=== PATIENT | male | born 1955 | race Caucasian/White ===

== ENCOUNTER 2017-10-22 06:53 | Day surgery (SDC) | payer OTHER, SELFPAY ==
--- NOTE | 2017-10-22 | PATH_ITS ---
[facility] Accession Number: [id number] . 01 Material submitted: . PART A: GASTRIC POLYP PART B: GE JUNCTION . 02 Diagnosis: A. Stomach, Polyp, Biopsy: Fundic gland polyp. No evidence of Helicobacter on H/E stain. Negative for intestinal metaplasia. Negative for dysplasia and malignancy. . B. Gastroesophageal Junction, Biopsy: Squamous and columnar mucosa with no significant diagnostic abnormality. Negative for intestinal metaplasia. Intraepithelial eosinophils are not increased. Negative for dysplasia and malignancy. [facility]/10/23/2017 . 02 Electronically signed: . Renae Saucedo MD, Pathologist NPI- [id number] . 01 Gross description: . (A) Received in formalin, labeled gastric polyp, are multiple fragments of moyer tissue (1.0 x 0.5 x 0.2 cm in aggregate). Filtered and entirely submitted in cassette A1. (B) Received in formalin, labeled GE junction, are multiple fragments of sandoval-white semi-translucent tissue (0.9 x 0.5 x less than 0.1 cm in aggregate). Filtered and entirely submitted in cassette B1. ([id number]) /[facility] . 02 Pathologist provided ICD-10: R10.9 . 02 CPT . 660335, [id number] Performed at: 01 [facility] [address], [place], [place] [id number] MD Jassi Martin MD Phone: [phone] Performed at: 02 [facility] [place] [address] [place], [place] [id number] MD David Velasco MD Phone: [phone]
[2017-10-22 07:08] VITALS: BP 97/64; PULSE 70; RESP 18; TEMP 36.2; O2SAT 100; BMI 23.5
--- NOTE | 2017-10-22 08:01 | PM.PREOP ---
Pre-operative Note Interval Note Pre-op Check: Yes History & Physical Reviewed by Physician and Yes Exam Performed Changes: Yes H&P completed within 30 days and has changed as indicated here:: patient has severe anxiety thus anesthesiologist will be involved with his care
[2017-10-22] MEDS: SODIUM CHLORIDE 0.9% 1,000 ML 200 ML IV (08:02)
[2017-10-22] MEDS: TETRACAINE/BENZOCAINE/BUTAMBEN (CETACAINE) BOTTLE 1 SPRAY TOP (08:18)
--- NOTE | 2017-10-22 08:30 | PM.OP.ENDO ---
Operative Date/Time/Diagnoses Date of procedure: 10/22/17 Time of procedure: 08:30 Pre-op diagnosis: Epigastric discomfort, persistent nausea especially after eating Post-op diagnosis: same (Narrowed pylorus. 2 cm hiatal hernia. Polypoid gastric lesions suggestive of benign gastric fundic polyps) Procedure & Clinicians Study performed: EGD with cold biopsy Same procedure as scheduled: Yes Indications: Postprandial nausea epigastric pain cause unclear. Surgeon: Manny Darby Procedure Notes SCOAP/Timeout: Performed Procedure in detail: The patient had topical anesthetic applied to oropharynx. She was placed in left lateral decubitus position and underwent Iv MAC anesthesia due to his severe anxiety. A bite block was inserted and the scope was advanced through it into the esophagus. Cord structures were normal in appearance. The esophagus was unremarkable. GE junction was noted at 38 cm from the incisors. There was a small 2 cm hiatal hernia noted. The stomach insufflated well. There were no lesions seen in the body, antrum or at the incisura save for scattered polypoid lesions highly suggestive of gastric fundic polyps. The pyloric channel was narrowed but patent. The duodenal bulb was remarkable for small amount of petechial like lesions. There was no active ulceration or duodenitis. The remainder of the duodenum was normal to the 3th part. The papilla was well seen and was normal in appearance. Bile was noted to be coming from the orifice. The scope was brought back into the stomach and retroflexed. The proximal stomach[was normal except for the presence of a hiatal hernia seen from below. Random biopsies were taken of the gastric polyps.]. The scope was straightened and brought out through the esophagus again. Random biopsies were taken at the GE junction though there was no evidence of Cuellar's metaplasia. No lesions were seen. The scope was removed and the patient tolerated the procedure well. Scope withdrawal time: Not applicable Sedation minutes: 0 Findings: hiatal hernia (Small 2 cm), polyp (Gastric suggestive of fundic polyps. Biopsies taken.) and other findings (Narrow pyloric channel) Recommendations: Stop medication(s) (Sucralfate) Follow up: as needed Disposition: PACU
[2017-10-22 08:31] VITALS: BP 99/69; PULSE 81; RESP 12; TEMP 36; O2SAT 97
[2017-10-22 08:36] VITALS: BP 100/69; PULSE 76; RESP 9; O2SAT 95
[2017-10-22 08:41] VITALS: BP 106/77; PULSE 92; RESP 22; O2SAT 94
[2017-10-22 08:47] VITALS: BP 107/86; PULSE 89; RESP 12; TEMP 35.8; O2SAT 99
--- NOTE | 2017-10-22 08:48 | SUR.PHASEI ---
Denied pain, occasional moist cough
[2017-10-22 09:11] VITALS: BP 110/78; PULSE 80; RESP 16; TEMP 36.3; O2SAT 99
--- NOTE | 2017-10-22 09:14 | SUR.PHASEII ---
Pt. has occasional spontanious cough without drinking, able to cough and clear throat easily. This author instructed the pt. and the spouse, when pt. is eating/drinking needs to sit bolt upright and do not turn head, talk or anything while swallowing. Let the pt./spouse know this should be only throughout today. Both spouse and pt. acknowledged understanding.
== END 2017-10-22 09:06 | disposition home or self-care (01) ==
PROVIDERS: Family Provider Family Medicine; PCP Family Medicine; Visit Provider Specialist
PROC: 0DJ08ZZ Inspection of Upper Intestinal Tract, Via Natural or Artificial Opening Endoscopic (ICD-10-PCS; CPT 43235; principal; 2017-10-22 07:45)
DX: K44.9 Diaphragmatic hernia without obstruction or gangrene (principal); R63.4 Abnormal weight loss; R11.0 Nausea; F41.9 Anxiety disorder, unspecified; K31.7 Polyp of stomach and duodenum
CPT/HCPCS: 43239; J2250; J2704; J3010

== ENCOUNTER → 2017-11-02 10:02 | Outpatient (CLI) | payer OTHER, SELFPAY ==
--- NOTE | 2017-11-02 10:02 | DI.US.S_ITS ---
PROCEDURE: US ABDOMEN COMPLETE INDICATIONS: POST PRANDIAL NAUSEA, PAIN TECHNIQUE: Real-time scanning was performed of the abdominal and retroperitoneal organs, with image documentation. COMPARISON: None. FINDINGS: Liver: Liver is normal in size and homogeneous in echotexture. Gallbladder: No gallstones identified. Normal gallbladder wall. No pericholecystic fluid. Negative sonographic Luther sign. Biliary ducts: Intrahepatic bile ducts are non-dilated. Extrahepatic bile duct caliber measures 4.6 mm. Normal is 6-7 mm or less in diameter, or 10 mm or less post-cholecystectomy. Pancreas: Visualized portions of the pancreas are sonographically normal. Spleen: Spleen is normal in size and homogeneous in echotexture. Kidneys: Kidneys are normal in size and echotexture. Right kidney measures 11 cm long; left kidney measures 11.1 cm long. No hydronephrosis or nephrolithiasis. No solid masses. Aorta: Visualized aorta is normal in caliber at less than 3 cm. Iliacs: Proximal common iliac arteries are normal in caliber at less than 2.5 cm. IVC: Intrahepatic inferior vena cava is patent. Miscellaneous: No free abdominal fluid. IMPRESSION: No source for postprandial pain and nausea identified sonographically. Dictated by: Eligio NAVARRO Interpreted: Delonte Hudson MD on 11/02/2017 at 10:43 Approved by: Delonte Hudson M.D. on 11/02/2017 at 13:21
== END ==
PROVIDERS: Family Provider Family Medicine; PCP Family Medicine; Visit Provider Specialist
DX: R10.13 Epigastric pain (principal); R11.0 Nausea; R63.4 Abnormal weight loss
CPT/HCPCS: 76700

== ENCOUNTER → 2017-11-26 10:50 | Outpatient (CLI) | payer OTHER, SELFPAY ==
--- NOTE | 2017-11-26 11:44 | DI.CT.S_ITS ---
PROCEDURE: CT ABDOMEN W CON INDICATIONS: epigastric discomfort and postprandial nausea TECHNIQUE: After the administration of oral and intravenous contrast, 5 mm thick sections acquired from the diaphragms to the iliac crests. 5 mm thick coronal and sagittal reformats were acquired. For radiation dose reduction, the following was used: automated exposure control, adjustment of mA and/or kV according to patient size. COMPARISON: None. FINDINGS: Image quality: Excellent. Lung bases: Lung bases are clear. Heart size is normal. Solid organs: Liver is normal in size and enhancement. Small, round, subcapsular fat density lesion is noted in the posterior-inferior margin of the right lobe liver ultimately series 2, image 19; series 4, image 47) may represent a pseudolipoma of the hepatic capsule. Mild, diffuse fatty infiltration of the liver. Gallbladder is within normal limits. Biliary system is non dilated. Pancreas enhances normally. Spleen is normal in size and enhancement. No adrenal nodules. Kidneys are normal in size, without hydronephrosis. Peritoneum and bowel: Mild, circumferential wall thickening involving the distal esophagus and wall thickening involving the cardia and fundus of the proximal stomach which could be due to under distention versus neoplastic process.. Contrast enhanced bowel loops appear normal in caliber. Few diverticuli noted in the visualized colon without evidence of diverticulitis. No free fluid or air. Nodes and vessels: No retroperitoneal or mesenteric adenopathy by size criteria. Aorta and inferior vena cava are normal in size. Bones: No suspicious bony lesions. No vertebral body compression fractures. Spine degenerative disc disease and facet arthropathy. Miscellaneous: No ventral hernias. IMPRESSION: 1. Mild wall thickening involving the visualized distal esophagus as well as the cardia and fundus of the proximal stomach which could be due to underdistention versus infiltrating process including both inflammatory and neoplastic etiologies. Recommend either endoscopy or air-contrast upper GI series for further evaluation. 2. Mild hepatic steatosis. 3. Colonic diverticulosis without evidence of diverticulitis. 4. No free fluid or free air. 5. No dilated loops of bowel. Dictated by: Linda Vargas MD, PhD on 11/26/2017 at 16:40 Approved by: Linda Vargas MD, PhD on 11/26/2017 at 16:50
[2017-11-26 11:52] LABS: BUN Creatinine Ratio 18.8 (6-22); Blood Urea Nitrogen 15 mg/dL (9-20); Estimated Glomerular Filt Rate > 60.0 mL/min (>60)
== END ==
PROVIDERS: Family Provider Family Medicine; PCP Family Medicine; Visit Provider Specialist
DX: R10.13 Epigastric pain (principal); R11.0 Nausea; K76.0 Fatty (change of) liver, not elsewhere classified; K57.90 Diverticulosis of intestine, part unspecified, without perforation or abscess without bleeding
CPT/HCPCS: 36415; 74160; 82565; 84520; Q9967

== ENCOUNTER → 2018-03-10 15:13 | Outpatient (CLI) | payer OTHER, SELFPAY ==
[2018-03-10 15:42] LABS: BUN Creatinine Ratio 17.8 (6-22); Blood Urea Nitrogen 16 mg/dL (9-20); Estimated Glomerular Filt Rate > 60.0 mL/min (>60)
== END ==
PROVIDERS: PCP Family Medicine; Visit Provider Specialist
DX: R10.13 Epigastric pain (principal)
CPT/HCPCS: 36415; 82565; 84520

== ENCOUNTER → 2018-03-11 16:05 | Outpatient (CLI) | payer OTHER, SELFPAY ==
--- NOTE | 2018-03-11 16:06 | DI.MRI.S_ITS ---
PROCEDURE: MR ABDOMEN WO/W CON INDICATIONS: Epigastric pain.Unexplained 40 lb weight loss.Sister Panc CA TECHNIQUE: Coronal HASTE, axial 2D FLASH in- and toe-sy-kugsw; axial breath-hold T2 FSE. Dynamic axial VIBE during the administration of contrast; post-contrast coronal VIBE or 2D FLASH with fat saturation from the hepatic dome to the iliac crests. Optional diffusion weighted imaging and ADC may be performed. COMPARISON: [facility], US, US ABDOMEN COMPLETE, 11/02/2017, 10:07. [facility], CT, CT ABDOMEN W CON, 11/26/2017, 11:53. FINDINGS: Image quality: Excellent. Lung bases: No basal pleural effusions. Heart size is normal. Solid organs: Liver is normal in size and enhancement. Gallbladder appears normal. Biliary system is non dilated. Pancreas is normal in morphology and shows no evidence of mass or pancreatic ductal distention. Spleen is normal in size and enhancement. No adrenal nodules. Both kidneys demonstrate normal size and enhancement, without hydronephrosis. Nodes and vessels: No retroperitoneal or mesenteric adenopathy by size criteria. Aorta and inferior vena cava are normal in size. Bowel and peritoneum: Unenhanced bowel loops are normal in caliber. No free fluid. Bones and soft tissues: No ventral hernias. Bone marrow is normal in overall signal. IMPRESSION: Etiology is current pain and unexplained weight loss is not found. The pancreas appears free of mass or pancreatic ductal distention. The bile ducts are not distended. Throughout the visualized abdomen and upper pelvis no lesion is seen. Dictated by: Delonte Hudson M.D. on 03/12/2018 at 9:00 Approved by: Delonte Hudson M.D. on 03/12/2018 at 9:07
== END ==
PROVIDERS: PCP Family Medicine; Visit Provider Specialist
DX: R10.13 Epigastric pain (principal); R63.4 Abnormal weight loss
CPT/HCPCS: 74183; A9579

== ENCOUNTER → 2018-03-18 12:35 | Outpatient (CLI) | payer OTHER, SELFPAY | PROVIDERS: PCP Family Medicine; Visit Provider Family Medicine | DX: M79.646 Pain in unspecified finger(s) (principal) | CPT/HCPCS: 95885; 95886; 95911 ==

== ENCOUNTER → 2018-04-21 15:59 | Outpatient (CLI) | payer SELFPAY ==
--- NOTE | 2018-04-21 | DI.RAD.S_ITS ---
PROCEDURE: XR KNEE LT 3V INDICATIONS: BILATERAL KNEE PAIN TECHNIQUE: 3 views of the knee were acquired. COMPARISON: [facility], CR, XR KNEE RT 3V, 04/21/2018, 16:19. [facility], , KNEE 3V LEFT, 01/11/2016, 11:58. FINDINGS: Bones: No fractures or dislocations. No suspicious bony lesions. There is a slight degree of medial compartment joint space narrowing. No effusion or loose bodies seen. Soft tissues: No joint effusion. No suspicious soft tissue calcifications. IMPRESSION: Degenerative changes at the left knee are very mild at the medial compartment, and no trauma is seen. Dictated by: Delonte Hudson M.D. on 04/21/2018 at 16:47 Approved by: Delonte Hudson M.D. on 04/21/2018 at 16:48
--- NOTE | 2018-04-21 | DI.RAD.S_ITS ---
PROCEDURE: XR KNEE RT 3V INDICATIONS: BILATERAL KNEE PAIN TECHNIQUE: 3 views of the knee were acquired. COMPARISON: [facility], , KNEE 3V LEFT, 01/11/2016, 11:58. FINDINGS: Bones: No fractures or dislocations. No suspicious bony lesions. There is a slight degree of narrowing of the medial compartment and the lateral facet of the patellofemoral joint no effusion or loose body is seen. Soft tissues: No joint effusion. No suspicious soft tissue calcifications. IMPRESSION: Minimal degenerative osteoarthritis at the medial compartment and the lateral facet. The appearance is equivalent to that on the frontal view of the left knee but facet degeneration at the left knee is not present. Dictated by: Delonte Hudson M.D. on 04/21/2018 at 16:44 Approved by: Delonte Hudson M.D. on 04/21/2018 at 16:47
== END ==
PROVIDERS: PCP Family Medicine; Visit Provider Family Medicine
DX: M25.562 Pain in left knee (principal); M25.561 Pain in right knee
CPT/HCPCS: 73562

== ENCOUNTER 2020-04-07 23:19 | Emergency (ER) | payer OTHER, SELFPAY ==
[2020-04-07 23:27] VITALS: BP 149/83; PULSE 74; RESP 17; TEMP 36.8; O2SAT 100; BMI 25.1
--- NOTE | 2020-04-07 23:27 | DI.RAD.S_ITS ---
PROCEDURE: XR CHEST 1V INDICATIONS: chest pain TECHNIQUE: One view of the chest was acquired. COMPARISON: Located [facility], , CHEST 2 VIEW, 12/15/2016, 11:42. FINDINGS: Overlying EKG wires. Surgical changes and devices: None. Lungs and pleura: Lungs are clear. No pleural effusions or pneumothorax. Mediastinum: Mediastinal contours appear normal. Heart size is normal. Bones and chest wall: Remote posttraumatic changes of the right distal clavicle and mild degenerative changes of the spine. No acute osseous abnormality. No suspicious bony lesions. Overlying soft tissues appear unremarkable. IMPRESSION: No evidence of an acute cardiopulmonary abnormality. Agree with preliminary report. Dictated by: Conrad Adler D.O. on 04/08/2020 at 6:31 Approved by: Conrad Adler D.O. on 04/08/2020 at 6:32
[2020-04-07 23:36] LABS: Add Manual Diff / Slide Review NO; Basophils Absolute Auto 0 /uL (0-100); Basophils Percent Auto 0.7 % (0-2); Eosinophils Absolute Auto 200 /uL (0-450); Eosinophils Percent Auto 2.9 % (2-4); Hematocrit 40.9 % (41-53); Hemoglobin 13.8 g/dL (13.5-17.5); Lymphocytes Absolute Auto 2900 /uL (1100-4500); Lymphocytes Percent Auto 43.3 % (25-40); Mean Corpuscular HGB Conc 33.6 % (30-36); Mean Corpuscular Hemoglobin 29.9 PG (26-34); Mean Corpuscular Volume 88.8 fL (80-100); Monocytes Absolute Auto 800 /uL (0-900); Monocytes Percent Auto 11.8 % (3-14); Neutrophils Absolute Auto 2800 /uL (1500-7000); Neutrophils Percent Auto 41.3 % (50-75); Platelet Count 213 X10^3/uL (150-400); Red Blood Cell Count 4.61 X10^6/uL (4.5-5.9); Red Cell Distribution Width 13.3 % (11.6-14.8); White Blood Cell Count 6.7 X10^3/uL (4.5-11.0)
[2020-04-07 23:40] LABS: INR 1.1 (0.9-1.3); Prothrombin Time 13.2 SECONDS (10.1-12.7)
[2020-04-07 23:43] LABS: PTT Partial Thromboplastin Tim 28 SECONDS (26.4-36.2)
[2020-04-07 23:45] LABS: Alanine Aminotransferase 40 IU/L (<50); Albumin 4.3 g/dL (3.5-5.0); Albumin Globulin Ratio 1.5 (1.0-2.8); Alkaline Phosphatase 83 U/L (38-126); Aspartate Aminotransferase 32 IU/L (17-59); BUN Creatinine Ratio 21.2 (6-22); Bilirubin Total 0.3 mg/dL (0.2-1.3); Blood Urea Nitrogen 18 mg/dL (9-20); Calcium 9.2 mg/dL (8.4-10.2); Carbon Dioxide 30 mmol/L (22-32); Chloride 104 mmol/L (98-107); Creatine Kinase 103 U/L (55-170); Estimated Glomerular Filt Rate > 60.0 mL/min (>60); Globulin 2.9 g/dL (1.7-4.1); Glucose 81 mg/dL (80-110); HEMOLYSIS < 15 (0-50); Lipase 69 U/L (23-300); Potassium 3.8 mmol/L (3.4-5.1); Sodium 139 mmol/L (137-145); Total Protein 7.2 g/dL (6.3-8.2)
[2020-04-07 23:56] LABS: Troponin I < 0.012 ng/mL (0.01-0.034)
[2020-04-08] LABS: CKMB % Relative Index 0.7 % (1.5-5.0); Creatine Kinase MB 0.72 ng/mL (<2.37)
[2020-04-08 00:06] LABS: D Dimer < 200 ng/mL (<230)
--- NOTE | 2020-04-08 00:17 | ED.CHESTPAIN ---
HPI - Chest Pain General Chief Complaint: Chest Pain Stated Complaint: chest pain, difficulty breathing Time Seen by Provider: 04/07/20 23:30 Source: patient Mode of arrival: Ambulatory Limitations: no limitations History of Present Illness HPI narrative: 64-year-old gentleman with history of reflux, and hyperlipidemia on Lipitor, presents after 15 minutes of severe mid chest pain. He describes the pain is starting while he was sitting and watching television. Started in the left chest radiated across the midportion central chest was sharp, stabbing associated with crescendo pain than increasing dyspnea. He notes no diaphoresis and no nausea. Pain eventually subsided completely and he is pain free upon arrival in the emergency department. He states he took a full aspirin prior to arrival in the emergency department. He has never had similar symptoms in this does not feel like any of his reflux pain. Family history is significant for a father who began having cardiac issues in his mid 40s and ended up with bypass surgery x2. Related Data Home Medications Medication Instructions Recorded Confirmed omeprazole magnesium [Prilosec OTC] 20 mg PO BID #0 01/11/16 03/02/18 Allergies Allergy/AdvReac Type Severity Reaction Status Date / Time No Known Allergies Allergy Uncoded 03/02/18 15:21 Review of Systems Review of Systems Narrative: Pertinent positive and negative findings as per HPI Remainder of review of systems is otherwise unremarkable for Constitutional: Fevers, chills, weakness ENT: No sore throat, neck pain, ear pain CV: Chest pain, palpitations, dyspnea on exertion Respiratory: Cough, wheeze, dyspnea GI: Nausea, vomiting, diarrhea, : Dysuria, hematuria, flank pain MS: Muscle weakness, numbness, joint swelling or warmth Skin: Rashes, nonhealing lesions Neuro: Syncope, dizziness, tingling Patient History Medical History (Updated 04/08/20 @ 02:20 by Tiffani Gregory MD) History of chronic arthritis Surgical History History of appendectomy History of tonsillectomy S/P operative procedure on shoulder Family History Father Hypertension Heart disease Sister Cancer Social History marital status: household members: spouse and family occupational status: employed Smoking Status: Never smoker alcohol intake: current substance use type: does not use Smoking Status: Never smoker alcohol intake frequency: holidays/special occasions only Substance Use Type: does not use Exam Narrative Exam Narrative: General: Healthy appearing, in no acute distress. Able to give a complete and coherent history. Well-nourished well-developed HEENT: Moist mucous membranes, normal sclera with reactive pupils, Neck: No JVD, supple Respiratory: Lungs are clear to auscultation, no wheezing no rales no rhonchi. Full and symmetrical air movement Cardiac: Regular rate and rhythm no murmurs no bruits Abdomen: Soft, nontender, good bowel tones, no flank pain Skin: Warm and dry, no rashes Neurologic: Grossly neurologically intact with no obvious asymmetries or abnormalities Extremities: No trauma, well perfused Psych: Cooperative, appropriate insight and affect Initial Vital Signs Initial Vital Signs: Vital Signs Temperature 98.2 F 04/07/20 23:27 Pulse Rate 74 04/07/20 23:27 Respiratory Rate 17 04/07/20 23:27 Blood Pressure 149/83 H 04/07/20 23:27 Pulse Oximetry 100 04/07/20 23:27 Course Orders Ordered: ED Orders 04/07/20 23:25 Complete Blood Count AUTO DIFF Stat Comprehensive Metabolic Panel Stat D Dimer Stat Lipase Stat Partial Thromboplastin Time Stat Prothrombin Time INR Stat Troponin & CK Cardiac Panel Stat 04/07/20 23:27 XR chest 1V Stat EKG-12 Lead Stat 04/08/20 01:21 Trop I [Troponin I] Stat Vital Signs Vital signs: Vital Signs - 8 hr 04/07/20 23:27 Temperature 98.2 F Pulse Rate 74 Respiratory Rate 17 Blood Pressure 149/83 H Pulse Oximetry 100 MDM - Chest Pain Medical Records Data Attestation: I reviewed the patient's medical records. Lab Data Attestation: I reviewed the patient's lab results. Lab results narrative: Initial labs are reassuring, troponin is unremarkable. Will repeat at 2:00 a.m. Result diagrams: 04/07/20 23:25 04/07/20 23:25 Labs: Lab Results 04/07/20 04/07/20 04/07/20 Range/Units 23:25 23:25 23:25 WBC 6.7 (4.5-11.0) X10^3/uL RBC 4.61 (4.5-5.9) X10^6/uL Hgb 13.8 (13.5-17.5) g/dL Hct 40.9 L (41-53) % MCV 88.8 (80-100) fL MCH 29.9 (26-34) PG MCHC 33.6 (30-36) % RDW 13.3 (11.6-14.8) % Plt Count 213 (150-400) X10^3/uL Neut % (Auto) 41.3 L (50-75) % Lymph % (Auto) 43.3 H (25-40) % [place] % (Auto) 11.8 (3-14) % Eos % (Auto) 2.9 (2-4) % Baso % (Auto) 0.7 (0-2) % Neut # (Auto) 2800 (9275-2307) /uL Lymph # (Auto) 2900 (2885-9121) /uL [place] # (Auto) 800 (0-900) /uL Eos # (Auto) 200 (0-450) /uL Baso # (Auto) 0 (0-100) /uL PT 13.2 H (10.1-12.7) SECONDS INR 1.1 (0.9-1.3) APTT 28 (26.4-36.2) SECONDS D-Dimer (<230) ng/mL Sodium 139 (137-145) mmol/L Potassium 3.8 (3.4-5.1) mmol/L Chloride 104 (98-107) mmol/L Carbon Dioxide 30 (22-32) mmol/L BUN 18 (9-20) mg/dL Creatinine 0.85 (0.66-1.25) mg/dL Estimated GFR > 60.0 (>60) mL/min BUN/Creatinine Ratio 21.2 (6-22) Glucose 81 (80-110) mg/dL Calcium 9.2 (8.4-10.2) mg/dL Total Bilirubin 0.3 (0.2-1.3) mg/dL AST 32 (17-59) IU/L ALT 40 (<50) IU/L Alkaline Phosphatase 83 (38-126) U/L Total Creatine Kinase 103 (55-170) U/L CK-MB (CK-2) 0.72 (<2.37) ng/mL CK-MB (CK-2) Rel Index 0.7 L (1.5-5.0) % Troponin I < 0.012 (0.01-0.034) ng/mL Total Protein 7.2 (6.3-8.2) g/dL Albumin 4.3 (3.5-5.0) g/dL Globulin 2.9 (1.7-4.1) g/dL Albumin/Globulin Ratio 1.5 (1.0-2.8) Lipase 69 (23-300) U/L 04/07/20 04/08/20 Range/Units 23:25 01:21 WBC (4.5-11.0) X10^3/uL RBC (4.5-5.9) X10^6/uL Hgb (13.5-17.5) g/dL Hct (41-53) % MCV (80-100) fL MCH (26-34) PG MCHC (30-36) % RDW (11.6-14.8) % Plt Count (150-400) X10^3/uL Neut % (Auto) (50-75) % Lymph % (Auto) (25-40) % [place] % (Auto) (3-14) % Eos % (Auto) (2-4) % Baso % (Auto) (0-2) % Neut # (Auto) (5569-6643) /uL Lymph # (Auto) (2785-9564) /uL [place] # (Auto) (0-900) /uL Eos # (Auto) (0-450) /uL Baso # (Auto) (0-100) /uL PT (10.1-12.7) SECONDS INR (0.9-1.3) APTT (26.4-36.2) SECONDS D-Dimer < 200 (<230) ng/mL Sodium (137-145) mmol/L Potassium (3.4-5.1) mmol/L Chloride (98-107) mmol/L Carbon Dioxide (22-32) mmol/L BUN (9-20) mg/dL Creatinine (0.66-1.25) mg/dL Estimated GFR (>60) mL/min BUN/Creatinine Ratio (6-22) Glucose (80-110) mg/dL Calcium (8.4-10.2) mg/dL Total Bilirubin (0.2-1.3) mg/dL AST (17-59) IU/L ALT (<50) IU/L Alkaline Phosphatase (38-126) U/L Total Creatine Kinase (55-170) U/L CK-MB (CK-2) (<2.37) ng/mL CK-MB (CK-2) Rel Index (1.5-5.0) % Troponin I < 0.012 (0.01-0.034) ng/mL Total Protein (6.3-8.2) g/dL Albumin (3.5-5.0) g/dL Globulin (1.7-4.1) g/dL Albumin/Globulin Ratio (1.0-2.8) Lipase (23-300) U/L Imaging Data Chest x-ray: Radiologist's Impression: No acute findings Philip Zepeda ECG Data Attestation: I personally reviewed and interpreted this ECG as follows: Interpretation: Sinus rhythm at a rate of 78 Normal intervals, normal axis No acute ST T wave changes Normal EKG [facility] Narrative Medical decision making narrative: 64-year-old gentleman with acute sharp chest pain while at rest lasting approximately 15-20 minutes. Workup in the emergency room is negative at this point chest x-ray is unremarkable, no pneumothorax, no cardiomegaly, no acute coronary syndrome, troponin and repeat are both unremarkable, no pulmonary infection, normal mediastinum on chest x-ray. He does not have any reproducible pain with palpation along the manubrium or with ribcage. At this point pain is resolved, workup is unremarkable and patient is safe for home discharge Discharge Plan Departure Patient Disposition: Home Clinical Impression: Atypical chest pain Instructions: DI for Atypical Chest Pain Activity Restrictions/Additional Instructions: Thank you for coming in today, your emergency room visit was absolutely appropriate. Fortunately, I did not find any life-threatening problems today. Specifically, no heart attack or heart attack like syndromes, no collapsed lung, no enlarged heart, no pneumonia, no acute rib or breast bone problems and no signs of infection otherwise. Sometimes the best were able to do in the emergency room is reassure you that there is no life-threatening findings and that is safe for you to go home and go to sleep. I would recommend follow-up with your primary care physician, it may be very appropriate to do some outpatient cardiac testing to help with risk stratification. If you have recurrent symptoms, please feel free to return to the ER. Prescriptions: No Action omeprazole magnesium [Prilosec OTC] 20 MG tablet,delayed release (DR/EC) 20 mg PO BID Qty: 0 RF: 0
[2020-04-08 01:56] LABS: Troponin I < 0.012 ng/mL (0.01-0.034)
[2020-04-08 02:29] VITALS: BP 102/78; PULSE 66; RESP 16; O2SAT 98
== END 2020-04-08 02:30 | disposition home or self-care (01) ==
PROVIDERS: Emergency Provider Emergency Medicine
DX: R07.89 Other chest pain (principal); E78.5 Hyperlipidemia, unspecified; K21.9 Gastro-esophageal reflux disease without esophagitis
CPT/HCPCS: 36415; 71045; 80053; 82550; 82553; 83690; 84484; 85025; 85379; 85610; 85730; 93005; 99284

== ENCOUNTER → 2020-07-19 08:00 | Outpatient (CLI) | payer OTHER, SELFPAY ==
[2020-07-19] MEDS: COVID-19 VACC #1, MRNA(MOD) 100 MCG/0.5 ML VIAL IM (08:09)
== END ==
PROVIDERS: Visit Provider Internal Medicine
DX: Z23 Encounter for immunization (principal)
CPT/HCPCS: 0011A; 91301

== ENCOUNTER → 2020-08-24 08:59 | Outpatient (CLI) | payer OTHER, SELFPAY ==
[2020-08-24] MEDS: COVID-19 VACC #2, MRNA(MOD) 100 MCG/0.5 ML VIAL IM (09:05)
== END ==
PROVIDERS: Visit Provider Internal Medicine
DX: Z23 Encounter for immunization (principal)
CPT/HCPCS: 0012A; 91301

== ENCOUNTER → 2024-03-23 08:39 | Outpatient (CLI) | payer OTHER, MEDICARE, SELFPAY ==
--- NOTE | 2024-03-23 08:44 | DI.MRI.S_ITS ---
PROCEDURE: MR KNEE LT WO CON INDICATIONS: Injury of left meniscus TECHNIQUE: Noncontrast sagittal PD fast spin echo and T2 fast spin echo with fat saturation, sagittal 3-D FLASH with fat saturation; coronal T1 spin echo and PD fast spin echo with fat saturation, and axial PD fast spin echo with fat saturation through the knee. COMPARISON: [facility], CR, XR KNEE LT 3V, 04/21/2018, 16:19. FINDINGS: Image quality: Diagnostic Menisci: Medial: Primarily oblique tear of the posterior horn the medial meniscus with small parameniscal cysts. Horizontal tear extends to the peripheral body. Lateral: There is a tiny horizontal tear probably degenerative. Cruciate ligaments: Intact Medial structures: MCL: Intact Pes anserine tendons: Mild bursal edema Semimembranosus: Stlr-[id number] insertional tendinopathy. There is focal edema at the posteromedial tibial plateau with the focal cystic change. Lateral structures: LCL: Moderate focal signal abnormality at the proximal ligament Biceps femoris: Intact IT band: Intact Popliteus tendon: Mild insertional tendinopathy Anterior structures: Extensor mechanism: Intact Fat pads: Mild Hoffa's fat pad edema Medial retinaculum: Intact. Trochlea: Unremarkable morphology. Bone and joint: Bones: No acute fracture Cartilage: There is extensive cartilage loss throughout the patella with numerous subchondral cysts and foci of edema. Vujj-nb-vjicivzo chondromalacia with heterogeneity seen elsewhere. Scattered osteophytes. Joint space: Trace effusion Case's cyst: None Soft tissues: There is prepatellar mild edema IMPRESSION: Ramp tear of the medial meniscus with a horizontal component extending to the body. Adjacent parameniscal cysts are seen. Possible tiny degenerative tear of the lateral meniscus. Intact cruciate ligaments. Suspect gxek-[id number]-kazdgcnw sprain of the proximal LCL. Extensive chondral loss throughout the patella with subchondral cystic changes and edema. Zlza-[id number] chondral heterogeneity is seen elsewhere. There is edema involving the posterior medial corner structures, with a mild contusion versus reactive edema at the posteromedial tibial plateau, with focal cystic change. Mild Hoffa's fat pad edema and trace effusion. Dictated by: Camden Dinh M.D. on 03/24/2024 at 17:17 Approved by: Camden Dinh M.D. on 03/24/2024 at 17:23
== END ==
LOC: MRI 08:43
PROVIDERS: PCP Family Medicine; Referring Provider Family Medicine; Visit Provider Family Medicine
DX: S83.242A Other tear of medial meniscus, current injury, left knee, initial encounter (principal); M94.262 Chondromalacia, left knee; R60.0 Localized edema; X58.XXXA Exposure to other specified factors, initial encounter
CPT/HCPCS: 73721

== ENCOUNTER → 2024-04-15 14:26 | Outpatient (CLI) | payer OTHER, MEDICARE, SELFPAY ==
--- NOTE | 2024-04-15 14:30 | EKG_ITS ---
[address] [address] Test Date: 2024-04-15 Pat Name: Rafael Wolf Department: [facility] Room: Gender: Male [employer]: VIBHA : 1955 Requested By: Order Number: [id number] Reading MD: Humberto Beltrán Measurements Intervals [place] Rate: 79 P: 35 TX: 132 QRS: -6 QRSD: 94 T: 4 QT: 384 QTc: 440 Interpretive Statements Normal sinus rhythm Electronically Signed On 04-20-2024 23:42:10 PST by Humberto Beltrán
[2024-04-15 14:48] LABS: Add Manual Diff / Slide Review NO; Basophils Absolute Auto 0 /uL (0-100); Basophils Percent Auto 0.5 % (0-2); Eosinophils Absolute Auto 100 /uL (0-450); Hematocrit 42.3 % (41-53); Hemoglobin 14.3 g/dL (13.5-17.5); Lymphocytes Absolute Auto 2500 /uL (1100-4500); Lymphocytes Percent Auto 41.6 % (25-40); Mean Corpuscular HGB Conc 33.8 % (30-36); Mean Corpuscular Volume 88.8 fL (80-100); Monocytes Absolute Auto 700 /uL (0-900); Monocytes Percent Auto 11.1 % (3-14); Neutrophils Absolute Auto 2700 /uL (1500-7000); Neutrophils Percent Auto 44.8 % (50-75); Platelet Count 223 X10^3/uL (150-400); Red Blood Cell Count 4.77 X10^6/uL (4.5-5.9); Red Cell Distribution Width 13.5 % (11.6-14.8); White Blood Cell Count 5.9 X10^3/uL (4.5-11.0)
[2024-04-15 14:58] LABS: Hemoglobin A1C% w Est Avg Glu 5.4 % (4.0-6.0)
[2024-04-15 15:26] LABS: Albumin 4.5 g/dL (3.5-5.0); BUN Creatinine Ratio 18.4 (6-22); Blood Urea Nitrogen 16 mg/dL (9-20); Calcium 9.6 mg/dL (8.4-10.2); Carbon Dioxide 23 mmol/L (22-32); Chloride 105 mmol/L (98-107); Estimated Glomerular Filt Rate > 60 mL/min (>60); Glucose 76 mg/dL (80-110); HEMOLYSIS < 15 (0-50); Potassium 4.1 mmol/L (3.4-5.1); Sodium 138 mmol/L (137-145)
[2024-04-15 15:34] LABS: Prealbumin 28.4 mg/dL (17.6-36.0)
[2024-04-15 16:58] LABS: Vitamin D 25 Hydroxy (D3) 18.7 ng/mL (30.0-100.0)
== END ==
LOC: LAB 14:28
PROVIDERS: PCP Family Medicine; Referring Provider Orthopaedic Surgery Adult Reconstructive Orthopaedic Surgery; Visit Provider Orthopaedic Surgery Adult Reconstructive Orthopaedic Surgery
DX: Z01.818 Encounter for other preprocedural examination (principal); R77.0 Abnormality of albumin; E55.9 Vitamin D deficiency, unspecified; Z01.812 Encounter for preprocedural laboratory examination; R73.9 Hyperglycemia, unspecified
CPT/HCPCS: 36415; 80048; 82040; 82306; 83036; 84134; 85025; 93005

== ENCOUNTER 2024-09-08 23:49 | Observation (INO) | payer OTHER, MEDICARE, SELFPAY ==
[2024-09-09] VITALS (18 sets, daily range): BP systolic 85–116; BP diastolic 51–80; PULSE 51–89; RESP 8–29; TEMP 36.3–36.9; O2SAT 94–100; BMI 24.3
--- NOTE | 2024-09-09 00:22 | DI.RAD.S_ITS ---
PROCEDURE: XR CHEST 1V INDICATIONS: Chest Pain TECHNIQUE: One view of the chest was acquired. COMPARISON: [facility], CR, XR CHEST 1V, 04/07/2020, 23:47. FINDINGS: Surgical changes and devices: None. Lungs and pleura: Lungs are clear. No pleural effusions or pneumothorax. Mediastinum: Mediastinal contours appear normal. Heart size is normal. Bones and chest wall: No suspicious bony lesions. Overlying soft tissues appear unremarkable. IMPRESSION: No acute pulmonary process. Dictated by: Hilary Wu M.D. on 09/09/2024 at 0:47 Approved by: Hilary Wu M.D. on 09/09/2024 at 0:47
--- NOTE | 2024-09-09 00:46 | EKG_ITS ---
[address] [address] Test Date: 2024-09-09 Pat Name: Rafael Wolf Department: 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
[2024-09-09 00:52] LABS: Add Manual Diff / Slide Review NO; Basophils Absolute Auto 0 /uL (0-100); Basophils Percent Auto 0.5 % (0-2); Eosinophils Absolute Auto 200 /uL (0-450); Eosinophils Percent Auto 2.2 % (2-4); Hematocrit 35.5 % (41-53); Hemoglobin 12.3 g/dL (13.5-17.5); INR 1.1 (0.9-1.3); Lymphocytes Absolute Auto 2900 /uL (1100-4500); Lymphocytes Percent Auto 39.6 % (25-40); Mean Corpuscular HGB Conc 34.7 % (30-36); Mean Corpuscular Hemoglobin 30.3 PG (26-34); Mean Corpuscular Volume 87.4 fL (80-100); Monocytes Absolute Auto 700 /uL (0-900); Monocytes Percent Auto 9.9 % (3-14); Neutrophils Absolute Auto 3500 /uL (1500-7000); Neutrophils Percent Auto 47.8 % (50-75); Platelet Count 221 X10^3/uL (150-400); Prothrombin Time 11.9 SECONDS (9.4-12.5); Red Blood Cell Count 4.06 X10^6/uL (4.5-5.9); Red Cell Distribution Width 14.1 % (11.6-14.8); White Blood Cell Count 7.3 X10^3/uL (4.5-11.0)
[2024-09-09 00:54] LABS: PTT Partial Thromboplastin Tim 25 SECONDS (25.1-36.5)
[2024-09-09 00:55] LABS: Alanine Aminotransferase 39 IU/L (<50); Albumin 3.9 g/dL (3.5-5.0); Albumin Globulin Ratio 1.3 (1.0-2.8); Alkaline Phosphatase 103 U/L (38-126); Aspartate Aminotransferase 82 IU/L (17-59); BUN Creatinine Ratio 15.7 (6-22); Bilirubin Total 0.5 mg/dL (0.2-1.3); Blood Urea Nitrogen 13 mg/dL (9-20); Carbon Dioxide 28 mmol/L (22-32); Chloride 102 mmol/L (98-107); Creatine Kinase 106 U/L (55-170); Estimated Glomerular Filt Rate > 60 mL/min (>60); Globulin 3.1 g/dL (1.7-4.1); Glucose 120 mg/dL (70-99); HEMOLYSIS < 15 (0-50); Lipase 53 U/L (23-300); Potassium 4.1 mmol/L (3.4-5.1); Sodium 137 mmol/L (137-145)
[2024-09-09 01:07] LABS: NT-proBNP (BNP-Adult 18+) 249 pg/mL (<125); Troponin I < 0.012 ng/mL (0.01-0.034)
[2024-09-09] MEDS: ONDANSETRON 4 MG/2 ML INJ IV (01:25)
[2024-09-09] MEDS: HYDROMORPHONE 0.5 MG INJ IV (01:26)
--- NOTE | 2024-09-09 01:26 | ED.ABDPAIN ---
HPI - Abdominal Pain General Chief Complaint: Abdominal Pain Stated Complaint: CHEST PAIN Time Seen by Provider: 09/09/24 01:24 Source: patient Mode of arrival: Ambulatory History of Present Illness HPI narrative: 69-year-old male without history of known CAD, has history of EDYTA for which he has taken PPI in the past, 10:00 p.m. last night had substernal bilateral anterior chest discomfort, some nausea without emesis, no shortness of breath. No radiation to the back or the arms or the legs. He took a Prilosec tablet. Still has ongoing pain. No trauma injury or new activities. Related Data Home Medications ?Medication ?Instructions ?Recorded ?Confirmed ibuprofen 200 mg capsule 400 mg PO Q8H 03/01/24 09/09/24 omeprazole 20 mg capsule,delayed 20 mg PO DAILY 03/01/24 09/09/24 release Allergies Allergy/AdvReac Type Severity Reaction Status Date / Time No Known Drug Allergies Allergy Verified 09/09/24 08:47 Patient History Medical History History of chronic arthritis Surgical History S/P operative procedure on shoulder History of tonsillectomy History of appendectomy Family History Father Hypertension Heart disease Sister Cancer Social History marital status: household members: spouse and family occupational status: employed Smoking Status: Never smoker alcohol intake: current substance use type: does not use Smoking Status: Never smoker alcohol intake frequency: holidays/special occasions only Exam Narrative Exam Narrative: GENERAL: Well-developed patient, in mild distress. HEAD: Atraumatic. Normocephalic. EYES: Pupils equal round and reactive. Extraocular motions intact. No scleral icterus. No injection or drainage. ENT: Nose without bleeding, purulent drainage. Throat without erythema, tonsillar hypertrophy or exudate. Airway patent. NECK: Trachea midline. Non tender CARDIOVASCULAR: Regular rate and rhythm without murmurs, gallops, or rubs. RESPIRATORY: Clear to auscultation. Breath sounds equal bilaterally. No wheezes, rales, or rhonchi. GASTROINTESTINAL: Abdomen soft, non-tender, nondistended. EXTREMITIES: No edema or joint tenderness. BACK: Nontender without deformity or crepitance. No flank tenderness. NEURO: AOx3. Motor functions grossly nonfocal. SKIN: No rash or erythema of visible areas Initial Vital Signs Initial Vital Signs: Vital Signs Temperature 98.4 F 09/09/24 00:04 Pulse Rate 58 L 09/09/24 00:04 Respiratory Rate 18 09/09/24 00:04 Pulse Oximetry 100 09/09/24 00:04 Oxygen Delivery Method Room Air 09/09/24 00:04 Course Orders Ordered: Acetaminophen (Acetaminophen 325 Mg Tablet) 650 mg PO Q6H PRN PRN Reason: Fever/Mild Pain (1-3) Last Admin: 09/09/24 13:48 Dose: 650 mg Documented By: JACINTA Enoxaparin Sodium (Enoxaparin 40 Mg/0.4 Ml Syringe) 40 mg SUBCUT DAILY [facility] Last Admin: 09/10/24 08:18 Dose: 40 mg Documented By: Admin: 09/09/24 08:34 Dose: Not Given Documented By: JACINTA Sodium Chloride (Normal Saline 0.9%) 1,000 mls @ 100 mls/hr IV CONT [facility] Last Admin: 09/10/24 05:12 Dose: 100 mls/hr Documented By: Infusion: 09/09/24 20:59 Dose: Infused Documented By: Admin: 09/09/24 09:33 Dose: 100 mls/hr Documented By: JACINTA Naloxone HCl (Naloxone 0.4 Mg/Ml Vial) 0.2 mg IV Q2MIN PRN PRN Reason: Opiate Reversal Ondansetron HCl (Ondansetron 4 Mg/2 Ml Inj) 4 mg IV Q8HR PRN PRN Reason: Nausea And Vomiting Pantoprazole Sodium (Pantoprazole Dr 20 Mg Tablet) 20 mg PO 0600 [facility] Last Admin: 09/10/24 05:11 Dose: 20 mg Documented By: ISAK Discontinued Medications Al Hydrox/Mg Hydrox/Simethicone (Mag Hydrox/Alum/Simeth 30 Ml Udc) 30 ml PO NOW ONE Stop: 09/09/24 01:44 Last Admin: 09/09/24 01:58 Dose: 30 ml Documented By: Doxycycline Hyclate (Doxycycline Hyclate 100 Mg Tablet) 100 mg PO NOW ONE Stop: 09/09/24 04:10 Last Admin: 09/09/24 04:31 Dose: 100 mg Documented By: TRESSA Hydromorphone HCl (Hydromorphone 0.5 Mg Inj) 0.5 mg IV NOW ONE Stop: 09/09/24 01:23 Last Admin: 09/09/24 01:26 Dose: 0.5 mg Documented By: Sodium Chloride (Normal Saline 0.9%) 1,000 mls @ 1,000 mls/hr IV BOLUS ONE Stop: 09/09/24 03:34 Last Infusion: 09/09/24 03:15 Dose: Infused Documented By: Admin: 09/09/24 02:37 Dose: 1,000 mls/hr Documented By: Sodium Chloride (Normal Saline 0.9%) 1,000 mls @ 1,000 mls/hr IV BOLUS ONE Stop: 09/09/24 04:12 Last Infusion: 09/09/24 04:39 Dose: Infused Documented By: Admin: 09/09/24 03:15 Dose: 1,000 mls/hr Documented By: TRESSA Sodium Chloride (Normal Saline 0.9%) 1,000 mls @ 1,000 mls/hr IV BOLUS ONE Stop: 09/09/24 05:08 Last Admin: 09/09/24 05:51 Dose: Not Given Documented By: Ceftriaxone Sodium 1,000 mg/ (Sodium Chloride) 100 mls @ 200 mls/hr IV NOW ONE Stop: 09/09/24 04:10 Last Infusion: 09/09/24 05:05 Dose: Infused Documented By: Admin: 09/09/24 04:31 Dose: 200 mls/hr Documented By: TRESSA Ondansetron HCl (Ondansetron 4 Mg/2 Ml Inj) 4 mg IV NOW ONE Stop: 09/09/24 01:23 Last Admin: 09/09/24 01:25 Dose: 4 mg Documented By: Pantoprazole Sodium (Pantoprazole 40 Mg Vial) 40 mg IV NOW ONE Stop: 09/09/24 01:45 Last Admin: 09/09/24 01:57 Dose: 40 mg Documented By: Vital Signs Vital signs: Vital Signs - 8 hr 09/09/24 00:04 09/09/24 01:31 09/09/24 01:32 Temperature 98.4 F Pulse Rate 58 L 58 L 58 L Respiratory Rate 18 15 Blood Pressure Pulse Oximetry 100 100 100 Oxygen Delivery Method Room Air 09/09/24 01:35 09/09/24 01:35 09/09/24 02:00 Temperature Pulse Rate 58 L Respiratory Rate 12 Blood Pressure 97/54 L 88/56 L Pulse Oximetry 97 Oxygen Delivery Method 09/09/24 02:00 Temperature Pulse Rate 51 L Respiratory Rate 11 L Blood Pressure Pulse Oximetry 95 Oxygen Delivery Method Room Air MDM - Abdominal Pain Lab Data Attestation: I reviewed the patient's lab results. Lab results narrative: White blood cell count 7300, hemoglobin 12.3, platelets adequate. Basic metabolic panel unremarkable, renal function normal, serum CO2 normal. Glucose 120. Liver functions normal. Troponin negative/unmeasurable. 09/09/24 08:05 09/09/24 08:05 Labs: Lab Results 09/09/24 09/09/24 Range/Units 00:18 03:25 WBC 7.3 (4.5-11.0) X10^3/uL RBC 4.06 L (4.5-5.9) X10^6/uL Hgb 12.3 L 11.3 L (13.5-17.5) g/dL Hct 35.5 L 33.0 L (41-53) % MCV 87.4 (80-100) fL MCH 30.3 (26-34) PG MCHC 34.7 (30-36) % RDW 14.1 (11.6-14.8) % Plt Count 221 (150-400) X10^3/uL Neut % (Auto) 47.8 L (50-75) % Lymph % (Auto) 39.6 (25-40) % [place] % (Auto) 9.9 (3-14) % Eos % (Auto) 2.2 (2-4) % Baso % (Auto) 0.5 (0-2) % Neut # (Auto) 3500 (7684-3445) /uL Lymph # (Auto) 2900 (1410-4285) /uL [place] # (Auto) 700 (0-900) /uL Eos # (Auto) 200 (0-450) /uL Baso # (Auto) 0 (0-100) /uL PT 11.9 (9.4-12.5) SECONDS INR 1.1 (0.9-1.3) APTT 25 L (25.1-36.5) SECONDS Sodium 137 (137-145) mmol/L Potassium 4.1 (3.4-5.1) mmol/L Chloride 102 (98-107) mmol/L Carbon Dioxide 28 (22-32) mmol/L BUN 13 (9-20) mg/dL Creatinine 0.83 (0.66-1.25) mg/dL Estimated GFR > 60 (>60) mL/min BUN/Creatinine Ratio 15.7 (6-22) Glucose 120 H (70-99) mg/dL Lactate 1.6 (0.7-2.1) mmol/L Calcium 9.0 (8.4-10.2) mg/dL Magnesium 2.0 (1.6-2.3) mg/dL Total Bilirubin 0.5 (0.2-1.3) mg/dL AST 82 H (17-59) IU/L ALT 39 (<50) IU/L Alkaline Phosphatase 103 (38-126) U/L Total Creatine Kinase 106 (55-170) U/L Troponin I < 0.012 < 0.012 (0.01-0.034) ng/mL NT-Pro-B Natriuret Pep 249 H (<125) pg/mL Total Protein 7.0 (6.3-8.2) g/dL Albumin 3.9 (3.5-5.0) g/dL Globulin 3.1 (1.7-4.1) g/dL Albumin/Globulin Ratio 1.3 (1.0-2.8) Lipase 53 (23-300) U/L Blood Type A Positive Antibody Screen Negative Imaging Data Chest x-ray: Radiologist's Impression: [address] [address] XRay Report Signed Patient: Rafael Wolf MR#: [id number] : 1955 Acct:[id number] Age/Sex: 69 / M Date of Service: 09/09/24 Loc: ED Accession Number: [id number] Procedure: XR chest 1V Ordering Provider: Bam Nur MD PROCEDURE: XR CHEST 1V INDICATIONS: Chest Pain TECHNIQUE: One view of the chest was acquired. COMPARISON: [facility], , XR CHEST 1V, 04/07/2020, 23:47. FINDINGS: Surgical changes and devices: None. Lungs and pleura: Lungs are clear. No pleural effusions or pneumothorax. Mediastinum: Mediastinal contours appear normal. Heart size is normal. Bones and chest wall: No suspicious bony lesions. Overlying soft tissues appear unremarkable. IMPRESSION: No acute pulmonary process. Dictated by: Hilary Wu M.D. on 09/09/2024 at 0:47 Approved by: Hilary Wu M.D. on 09/09/2024 at 0:47 ECG Data Attestation: I personally reviewed and interpreted this ECG as follows: Interpretation: 0046, sinus bradycardia with sinus arrhythmia, heart rate 57. No obvious ST segment elevation or depression changes. AR 132, QRS 92, QTC 426. 0311, normal sinus rhythm with rate of 72. No obvious ST segment elevation or depression changes. AR 132, QRS 100, QTC 479. MDM Narrative Medical decision making narrative: 69-year-old male with history of EDYTA, no known CAD, has bilateral anterior chest discomfort, took Prilosec dose, decreased but still present discomfort. DDX consider ACS, EDYTA, pneumonia, PE, aortic pathology, pancreatitis, PUD, other. EKG without obvious ischemic changes. Initial troponin negative. Chest x-ray no acute changes, see radiology report. Blood pressure drifting, repeat EKG without any significant change. Repeat H&H. CT angio PE protocol chest, IV only CT abdomen and pelvis imaging requested. Interval repeat troponin also negative/unmeasurable. CTA/CT reports pending. CT angio pulmonary PE protocol. Impression: ?No pulmonary embolism aortic dissection or aneurysm. Multifocal pulmonary infiltrates within the right upper lobe.. See tele radiology report. IV ceftriaxone and oral doxycycline were community-acquired pneumonia coverage. IV fluid bolus. Lactate normal range. Still awaiting CT abdomen and pelvis imaging report. CT abdomen and pelvis with IV contrast. Impressions: ?No evidence of colitis diverticulitis bowel obstruction or obstructive uropathy. Appendix is not seen. Incidental findings as detailed. See tele radiology report. Soft blood pressure 80s, IV fluid normal saline 1 L, blood pressure 96/56, map greater than 65, but soft blood pressure with pneumonia, we will give 2nd IV fluid bolus, consider admission. Patient agreeable. We will contact hospitalist. 0500, case discussed with hospitalist Dr. Olivo who accepts patient for admission to observation Critical Care Time Critical Care Time Critical Care Time: Yes Total Critical Care Time: 35 Attestation: The high probability of a clinically significant, sudden or life threatening deterioration of the [cardiopulmonary] system(s) required my full and direct attention, intervention and personal management. The aggregate critical care time was [35] minutes. This time is in addition to time spent performing reported procedures but includes the following: [x] Data Review and interpretation [x] Patient assessment and monitoring of vital signs [x] Documentation [x] Medication orders and management Discharge Plan Departure Patient Disposition: Admitted as Observation Clinical Impression: Pneumonia, Hypotension Admit Date/Time: 09/09/24 05:06 Admit Provider: Guillermo Quispe
[2024-09-09] MEDS: PANTOPRAZOLE 40 MG VIAL IV (01:57)
[2024-09-09] MEDS: MAG HYDROX/ALUM/SIMETH 30 ML UDC PO (01:58)
--- NOTE | 2024-09-09 02:31 | DI.CT.S_ITS ---
PROCEDURE: CT ABDOMEN PELVIS W CON INDICATIONS: abd pain, BP decreasing TECHNIQUE: After the administration of intravenous contrast, axial sections acquired from the lung bases to the pubic symphysis. Coronal and sagittal reformats were performed. For radiation dose reduction, the following was used: automated exposure control, adjustment of mA and/or kV according to patient size. COMPARISON: None. FINDINGS: Image quality: Diagnostic. Lower Chest: Supper lead dictated. ABDOMEN: Liver: No solid mass. Similar size of the soft tissue lesion along the posterior margin of the right hepatic lobe measuring 1.4 cm (series 2, image 48); size stability favors a benign entity. Gallbladder: No radiopaque gallstones or wall thickening. Biliary ducts: No biliary dilation. Pancreas: No ductal dilation. Spleen: Size is within normal limits. Adrenal Glands: No adrenal nodules. Kidneys and Ureters: No hydronephrosis. No solid mass. No complex renal cystic lesion which requires follow up. Stomach and Bowel: Normal colonic caliber, without significant wall thickening. Colonic diverticulosis without evidence of diverticulitis. Peritoneum: No abnormal intraperitoneal fluid. No free air. Ventral Wall: No significant ventral hernia. Abdominal Nodes: No retroperitoneal or mesenteric adenopathy by size criteria. Vessels: Aorta and inferior vena cava are normal in size. PELVIS: Pelvic Organs: Unremarkable. Bladder: No bladder wall thickening, accounting for underdistention. Pelvic Nodes: No enlarged lymph nodes. Miscellaneous: No inguinal hernias are seen. Bones: No aggressive osseous abnormality. Degenerative disc disease of the lumbar spine. IMPRESSION: No acute abnormality. Agree with preliminary report. Dictated by: Jordin Kaiser M.D. on 09/09/2024 at 8:12 Approved by: Jordin Kaiser M.D. on 09/09/2024 at 8:15
--- NOTE | 2024-09-09 02:31 | DI.CT.S_ITS ---
PROCEDURE: CT ANGIO CHEST PE PROTOCOL INDICATIONS: chest pain, PE protocol TECHNIQUE: After the administration of intravenous contrast, 2 mm thick sections acquired from the pulmonary apices to the posterior costophrenic angles. 3-dimensional maximum intensity projection (MIP) coronal and sagittal reformats were then acquired through the thorax. For radiation dose reduction, the following was used: automated exposure control, adjustment of mA and/or kV according to patient size. COMPARISON: None. FINDINGS: Image quality: Diagnostic. Pulmonary arteries: Pulmonary arteries are normal in size, and demonstrate no intraluminal filling defects to suggest central pulmonary embolism. Lower Neck: No enlarged lymph nodes. Thyroid: No thyroid nodules which require sonographic follow up, per consensus guidelines. Axillae: No enlarged lymph nodes. Chest Wall: Unremarkable. Bones: Unremarkable. Lungs and Pleura: Centrilobular ground-glass nodules in the right upper lobe. Juxtapleural nodules with smooth margins, favoring benign intrapulmonary lymph nodes. Heart: Heart size is normal. No pericardial effusion. Thoracic Vessels: No aortic aneurysm. Mediastinum and [place]: No enlarged lymph nodes. Esophagus: No wall thickening. Small hiatal hernia. Upper Abdomen: Visualized upper abdomen solid organs and bowel loops appear normal. IMPRESSION: No pulmonary embolus. Ground-glass centrilobular nodules in the right upper lobe, concerning for infectious or inflammatory bronchiolitis. Agree with preliminary report. Dictated by: Jordin Kaiser M.D. on 09/09/2024 at 8:10 Approved by: Jordin Kaiser M.D. on 09/09/2024 at 8:11
[2024-09-09] MEDS: SODIUM CHLORIDE 0.9% 1,000 ML 1000 ML IV ×2 (02:37→03:15)
--- NOTE | 2024-09-09 03:11 | EKG_ITS ---
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
[2024-09-09 03:38] LABS: Hemoglobin 11.3 g/dL (13.5-17.5)
[2024-09-09 03:49] LABS: Lactate (Lactic Acid) 1.6 mmol/L (0.7-2.1)
[2024-09-09 04:02] LABS: Troponin I < 0.012 ng/mL (0.01-0.034)
[2024-09-09] MEDS: cefTRIAXone 1,000 MG in SODIUM CHLORIDE 0.9% 100 ML 200 MG IV (04:31)
[2024-09-09] MEDS: DOXYCYCLINE HYCLATE 100 MG TABLET PO (04:31)
--- NOTE | 2024-09-09 06:14 | PM.HP.1 ---
History of Present Illness History of Present Illness Date Patient Seen: 09/09/24 Chief complaint: CHEST PAIN Narrative: 69 y/o with PMH of GERD presented with chest pain. Pain was radiating from right upper chest to the left. He was coughing non-productive. Initial workup negative for ACS. CXR non-revealing with CTA negative for PE but showing RUL PNA. Placed in observation on telemetry b/o CAD with a diagnosis of PNA PFSH Medical History History of chronic arthritis Surgical History S/P operative procedure on shoulder History of tonsillectomy History of appendectomy Family History Father Hypertension Heart disease Sister Cancer Social History marital status: household members: spouse and family occupational status: employed Smoking Status: Never smoker alcohol intake: current substance use type: does not use Meds Home Medications and Allergies Home Medications ?Medication ?Instructions ?Recorded ?Confirmed ?Type ibuprofen 200 mg capsule 400 mg PO Q8H 03/01/24 09/09/24 History omeprazole 20 mg capsule,delayed 20 mg PO DAILY 03/01/24 09/09/24 History release Allergies Allergy/AdvReac Type Severity Reaction Status Date / Time No Known Allergies Allergy Uncoded 09/09/24 00:04 Review of Systems Review of Systems Narrative: General - w/o fever or chills CVS - w/o left-sided chest pain or pressure, w/o palpitations RS - right upper chest pain GI - w/o epigastric pain Exam Vital Signs (past 8 hours): - 09/09/24 00:04 09/09/24 01:31 09/09/24 01:32 Temperature 98.4 F Pulse Rate 58 L 58 L 58 L Respiratory Rate 18 15 Blood Pressure Pulse Oximetry 100 100 100 Oxygen Delivery Method Room Air 09/09/24 01:35 09/09/24 01:35 09/09/24 02:00 Temperature Pulse Rate 58 L Respiratory Rate 12 Blood Pressure 97/54 L 88/56 L Pulse Oximetry 97 Oxygen Delivery Method 09/09/24 02:00 Temperature Pulse Rate 51 L Respiratory Rate 11 L Blood Pressure Pulse Oximetry 95 Oxygen Delivery Method Room Air Oxygen Delivery Method Room Air Narrative Exam Narrative: General - in no distress HEENT - normocephalic CVS - RRR RS - few rhonchi Neuro - w/o deficits, lucid Objective ECG Impression: NSR 71 w/o ischemic changes Imaging Chest x-ray: Radiologist's impression: No acute pulmonary process. CTA chest: Radiologist's impression: No pulmonary embolus. Ground-glass centrilobular nodules in the right upper lobe, concerning for infectious or inflammatory bronchiolitis. Labs 09/09/24 03:25 09/09/24 00:18 Labs: Laboratory Results - last 24 hr 09/09/24 09/09/24 00:18 03:25 WBC 7.3 RBC 4.06 L Hgb 12.3 L 11.3 L Hct 35.5 L 33.0 L MCV 87.4 MCH 30.3 MCHC 34.7 RDW 14.1 Plt Count 221 Neut % (Auto) 47.8 L Lymph % (Auto) 39.6 [place] % (Auto) 9.9 Eos % (Auto) 2.2 Baso % (Auto) 0.5 Neut # (Auto) 3500 Lymph # (Auto) 2900 [place] # (Auto) 700 Eos # (Auto) 200 Baso # (Auto) 0 PT 11.9 INR 1.1 APTT 25 L Sodium 137 Potassium 4.1 Chloride 102 Carbon Dioxide 28 BUN 13 Creatinine 0.83 Estimated GFR > 60 BUN/Creatinine Ratio 15.7 Glucose 120 H Lactate 1.6 Calcium 9.0 Magnesium 2.0 Total Bilirubin 0.5 AST 82 H ALT 39 Alkaline Phosphatase 103 Total Creatine Kinase 106 Troponin I < 0.012 < 0.012 NT-Pro-B Natriuret Pep 249 H Total Protein 7.0 Albumin 3.9 Globulin 3.1 Albumin/Globulin Ratio 1.3 Lipase 53 Blood Type A Positive Antibody Screen Negative Assessment & Plan Assessment and plan (1) Pneumonia: Status: Acute (2) GERD (gastroesophageal reflux disease): Qualifiers: Esophagitis presence: without esophagitis Qualified Code(s): K21.9 - Gastro-esophageal reflux disease without esophagitis Status: Acute Assessment & Plan narrative: Pneumonia - RUL, CAP - not septic or hypoxic - placed in observation more b/o chest pain - had PO doxycycline and IV Rocephin in the ED few hours ago - further Tx with PO abx to be determined by day hospitalist GERD - PPI DVT prophylaxis - Lovenox Patient consented to telemedicine, audio-visual encounter with RN assisting during the exam. Patient located at [place], [place], provider located in [place]. Time-Based Coding :: [TOTAL MINUTES] spent with patient and on the chart (including review of chart, obtaining history, exam, reviewing outside data, placing orders, documenting exam and treatment plan, and counseling patient) on [DATE].
--- NOTE | 2024-09-09 07:33 | PM.HP.1 ---
History of Present Illness History of Present Illness Date Patient Seen: 09/09/24 Chief complaint: CHEST PAIN Narrative: Summary: The patient was a 69-year-old male with known history of CAD, and GERD. The patient presented with anterior chest discomfort with nausea. He denied dyspnea or diaphoresis. The pain did not radiate. He had taken a proton pump inhibitor in the past and had not been taking this on a regular basis. He tried 1 Prilosec last night without relief. ED course: ECG non-acute, troponin normal (x2). Subjective: His chest pain has resolved. He notes that the chest pain was severe last night and substernal. There was no radiation to neck or arm and no dyspnea or diaphoresis. He did describe some foaming in the back of his throat and does have history of reflux. He does note that he was fishing in the last several days and his diet was less than optimal. He was mostly concerned about his gallbladder. His symptoms have improved by about 95%. His cardiac studies have been unremarkable thus far. He denies a history of exertional chest pain. He does take Prilosec once a day chronically. He denies alcohol ingestion. FOR[facility]LY [facility] Medical History History of chronic arthritis Surgical History S/P operative procedure on shoulder History of tonsillectomy History of appendectomy Family History Father Hypertension Heart disease Sister Cancer Social History marital status: household members: spouse and family occupational status: employed Smoking Status: Never smoker alcohol intake: current substance use type: does not use Meds Home Medications and Allergies Home Medications ?Medication ?Instructions ?Recorded ?Confirmed ?Type ibuprofen 200 mg capsule 400 mg PO Q8H 03/01/24 09/09/24 History omeprazole 20 mg capsule,delayed 20 mg PO DAILY 03/01/24 09/09/24 History release Allergies Allergy/AdvReac Type Severity Reaction Status Date / Time No Known Drug Allergies Allergy Verified 09/09/24 08:47 Review of Systems Review of Systems Narrative: All else reviewed and otherwise unremarkable except as noted in the history and physical. Exam Vital Signs (past 8 hours): - 09/09/24 00:04 09/09/24 01:31 09/09/24 01:32 Temperature 98.4 F Pulse Rate 58 L 58 L 58 L Respiratory Rate 18 15 Blood Pressure Pulse Oximetry 100 100 100 Oxygen Delivery Method Room Air Oxygen Flow Rate 09/09/24 01:35 09/09/24 01:35 09/09/24 02:00 Temperature Pulse Rate 58 L Respiratory Rate 12 Blood Pressure 97/54 L 88/56 L Pulse Oximetry 97 Oxygen Delivery Method Oxygen Flow Rate 09/09/24 02:00 09/09/24 02:30 09/09/24 02:30 Temperature Pulse Rate 51 L 51 L Respiratory Rate 11 L 8 L Blood Pressure 85/53 L Pulse Oximetry 95 95 Oxygen Delivery Method Room Air Oxygen Flow Rate 09/09/24 03:00 09/09/24 03:00 09/09/24 03:04 Temperature Pulse Rate 66 Respiratory Rate 14 Blood Pressure 86/51 L 89/56 L Pulse Oximetry 94 Oxygen Delivery Method Oxygen Flow Rate 09/09/24 03:04 09/09/24 03:40 09/09/24 03:42 Temperature Pulse Rate 75 89 Respiratory Rate 29 H Blood Pressure 93/58 L Pulse Oximetry 97 97 Oxygen Delivery Method Oxygen Flow Rate 09/09/24 03:42 09/09/24 04:00 09/09/24 04:00 Temperature Pulse Rate 84 81 Respiratory Rate 12 15 Blood Pressure 95/62 Pulse Oximetry 96 97 Oxygen Delivery Method Oxygen Flow Rate 09/09/24 04:30 09/09/24 04:30 09/09/24 05:00 Temperature Pulse Rate 74 Respiratory Rate 18 Blood Pressure 105/69 105/57 L Pulse Oximetry 98 Oxygen Delivery Method Oxygen Flow Rate 09/09/24 05:00 09/09/24 05:30 09/09/24 05:30 Temperature Pulse Rate 73 80 Respiratory Rate 19 20 Blood Pressure 109/66 Pulse Oximetry 98 97 Oxygen Delivery Method Room Air Oxygen Flow Rate 09/09/24 06:22 09/09/24 06:22 09/09/24 06:22 Temperature 97.6 F Pulse Rate 72 Respiratory Rate 16 Blood Pressure 108/68 Pulse Oximetry 99 98 Oxygen Delivery Method Room Air Room Air Oxygen Flow Rate 0 Oxygen Delivery Method Room Air Oxygen Flow Rate 0 Narrative Exam Narrative: NAD, alert and oriented, fluent speech, calm. Normocephalic skull, EOMI, anicteric sclera, symmetric pupils. Oropharynx unremarkable, no droop. Neck supple, midline trachea, no adenopathy. Lungs clear, normal rate and effort. Heart regular, no murmur gallop or rub. Abdomen is soft, non distended and non tender. Extremities are free of edema. Skin is free of rash or lesions. Joints are not swollen or deformed. Judgment appears to be normal. Objective ECG Impression: Normal sinus rhythm Imaging Chest x-ray: Radiologist's impression: No acute process. Labs 09/09/24 08:05 09/09/24 08:05 Labs: Laboratory Results - last 24 hr 09/09/24 09/09/24 00:18 03:25 WBC 7.3 RBC 4.06 L Hgb 12.3 L 11.3 L Hct 35.5 L 33.0 L MCV 87.4 MCH 30.3 MCHC 34.7 RDW 14.1 Plt Count 221 Neut % (Auto) 47.8 L Lymph % (Auto) 39.6 Jerauld % (Auto) 9.9 Eos % (Auto) 2.2 Baso % (Auto) 0.5 Neut # (Auto) 3500 Lymph # (Auto) 2900 [place] # (Auto) 700 Eos # (Auto) 200 Baso # (Auto) 0 PT 11.9 INR 1.1 APTT 25 L Sodium 137 Potassium 4.1 Chloride 102 Carbon Dioxide 28 BUN 13 Creatinine 0.83 Estimated GFR > 60 BUN/Creatinine Ratio 15.7 Glucose 120 H Lactate 1.6 Calcium 9.0 Magnesium 2.0 Total Bilirubin 0.5 AST 82 H ALT 39 Alkaline Phosphatase 103 Total Creatine Kinase 106 Troponin I < 0.012 < 0.012 NT-Pro-B Natriuret Pep 249 H Total Protein 7.0 Albumin 3.9 Globulin 3.1 Albumin/Globulin Ratio 1.3 Lipase 53 Blood Type A Positive Antibody Screen Negative Assessment & Plan Assessment & Plan narrative: 1. Chest pain, atypical. Negative ECG and troponin x2. 2. History of GERD, stable. 3. CAD, stable. 4. Possible pneumonia on imaging, new. PLAN: -continue PPI b.i.d. and antibiotics. -ambulate and monitor symptoms. -possible discharge later in the day. Time-Based Coding :: 35 min spent with patient and on the chart (including review of chart, obtaining history, exam, reviewing outside data, placing orders, documenting exam and treatment plan, and counseling patient) on 09/09. Quality MIPS - Admit The patient?s Advance Care plan is not present because I confirmed today that the patient does not wish or was not able to name a surrogate decision maker or provide an Advance Care Plan.: Yes MIPS - Meds 'Current medications' to include all prescriptions, [id number] products, herbals, cannabis/cannabidiol products, and vitamin/mineral/dietary (nutritional) supplements. I have utilized all available resources to obtain, update, or review the patient?s current medications. [If Yes, STOP here]: Yes
[2024-09-09 08:47] LABS: Add Manual Diff / Slide Review NO; Basophils Absolute Auto 0 /uL (0-100); Basophils Percent Auto 0.2 % (0-2); Eosinophils Absolute Auto 0 /uL (0-450); Eosinophils Percent Auto 0.3 % (2-4); Hematocrit 34.4 % (41-53); Hemoglobin 11.8 g/dL (13.5-17.5); Lymphocytes Absolute Auto 1200 /uL (1100-4500); Lymphocytes Percent Auto 28.8 % (25-40); Mean Corpuscular HGB Conc 34.2 % (30-36); Mean Corpuscular Hemoglobin 30.2 PG (26-34); Mean Corpuscular Volume 88.5 fL (80-100); Monocytes Absolute Auto 500 /uL (0-900); Monocytes Percent Auto 10.8 % (3-14); Neutrophils Absolute Auto 2600 /uL (1500-7000); Neutrophils Percent Auto 59.9 % (50-75); Platelet Count 205 X10^3/uL (150-400); Red Blood Cell Count 3.89 X10^6/uL (4.5-5.9); Red Cell Distribution Width 14.5 % (11.6-14.8); White Blood Cell Count 4.3 X10^3/uL (4.5-11.0)
[2024-09-09 09:08] LABS: BUN Creatinine Ratio 15.3 (6-22); Blood Urea Nitrogen 11 mg/dL (9-20); Calcium 8.7 mg/dL (8.4-10.2); Carbon Dioxide 26 mmol/L (22-32); Chloride 106 mmol/L (98-107); Estimated Glomerular Filt Rate > 60 mL/min (>60); Glucose 121 mg/dL (70-99); HEMOLYSIS < 15 (0-50); Potassium 4.9 mmol/L (3.4-5.1); Sodium 136 mmol/L (137-145)
[2024-09-09] MEDS: SODIUM CHLORIDE 0.9% 1,000 ML 100 ML IV (09:33)
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
[2024-09-09] MEDS: ACETAMINOPHEN 325 MG TABLET 650 MG PO (13:48)
[2024-09-10] MEDS: PANTOPRAZOLE DR 20 MG TABLET PO (05:11)
[2024-09-10] MEDS: SODIUM CHLORIDE 0.9% 1,000 ML 100 ML IV (05:12)
--- NOTE | 2024-09-10 07:41 | DI.ECHO.S_ITS ---
[facility]+ [facility] : : [address] : : [place] : : [id number] : : Phone: [phone] Echocardiogram Report + + :Name: KO DAILY Study Date: 09/10/2024 Height: 70 in : :[facility] ReadingLocation: Weight: 170 lb : : Gender: Male BSA: 1.9 m2 : :: 1955 Age: 69 yrs BP: 122/78 mmHg: :Reason For Study: CHEST PAIN : :Ordering Physician: LESLY, : :DIEGO Maria Performed By: Marco Nogueira : :Referring: DIEGO GRACE : + + Interpretation Summary 1) Normal left ventricular thickness, size, wall motion, and systolic function (EF 55-60%). 2) Upper normal right ventricular size with normal function. 3) No significant valvular abnormalities. 4) No prior Echo available for comparison. Procedure: A two-dimensional transthoracic echocardiogram with color flow and Doppler was performed. The study quality was technically good. There is no prior echocardiogram noted for this patient. The patient was in normal sinus rhythm during the exam. Left Ventricle: The left ventricle is normal in size. There is normal left ventricular wall thickness. There is no ventricular septal defect visualized. The ejection fraction is estimated to be 55-60%. There are no focal wall motion abnormalities. Diastolic parameters suggest a relaxation abnormality of the left ventricle, consistent with probable normal filling pressures. Right Ventricle: The right ventricle is at the upper limits of normal in size. The right ventricular systolic function is normal. Atria: The left atrial size is normal. Right atrial size is normal. There is no Doppler evidence for an interatrial shunt. Mitral Valve: The mitral valve leaflets appear normal. There is no evidence of stenosis, fluttering, or prolapse. There is no mitral regurgitation noted. Aortic Valve: The aortic valve is trileaflet. The aortic valve opens well. There is no aortic valve stenosis. No aortic regurgitation is present. Tricuspid Valve: The tricuspid valve leaflets are thin and pliable. No tricuspid regurgitation. Pulmonic Valve: The pulmonic valve is not well visualized. There is no pulmonic valvular regurgitation. Great Vessels: The aortic root is normal size. The dimensions of the ascending aorta are normal. The pulmonary artery is normal size. The IVC is of normal diameter and collapses less than 50% with a sniff. This suggests a right atrial pressure of 8 mm Hg. Pericardium/ Pleura There is no pericardial effusion. There is no pleural effusion. MMode/2D Measurements & Calculations LVIDd: 5.0 cm LVOT diam: 2.4 cm LVIDs: 3.1 cm Ao root diam: 3.5 cm FS: 37.1 % EPSS: 0.83 cm IVSd: 0.96 cm LVPWd: 0.99 cm LV willis. diameter/BSA (cm/m^2): 2.6 LV sys. diameter/BSA (cm/m^2): 1.6 LA A2 area: 21.6 cm2 RA long axis: 4.5 cm LA A4 area: 19.7 cm2 RA area: 14.3 cm2 LA length (vol): 6.1 cm RA vol: 39.0 ml LA vol: 59.3 ml RA : 20.0 ml/m2 LA vol index: 30.4 ml/m2 IVC diam: 2.1 cm RVD1 (basal): 4.0 cm RVD2 (mid): 3.5 cm TAPSE: 2.3 cm Doppler Measurements & Calculations Ao V2 max: 123.8 cm/sec LVOT Max Sammy: 98.7 cm/sec Ao V2 mean: 85.4 cm/sec LV V1 max P.9 mmHg Ao max P.1 mmHg LV V1 VTI: 18.7 cm Ao mean P.3 mmHg MORENITA(I,D): 4.1 cm2 Ao V2 VTI: 21.1 cm MORENITA(V,D): 3.7 cm2 sev ratio: 0.89 MORENITA indexed to BSA (cm^2/m^2): 2.1 MV E max sammy: 52.4 cm/sec PA V2 max: 91.5 cm/sec MV A max sammy: 62.3 cm/sec PA V2 mean: 65.7 cm/sec MV E/A: 0.84 PA mean P.9 mmHg Med Peak E' Sammy: 8.8 cm/sec PA pr(Accel): 48.2 mmHg E/E' med: 6.0 Lat Peak E' Sammy: 8.3 cm/sec E/E' lat: 6.3 E/e' average: 6.1 MV dec time: 0.20 sec SV(LVOT): 86.3 ml Reading Physician:12:23 PM
[2024-09-10] MEDS: ENOXAPARIN 40 MG/0.4 ML SYRINGE SUBCUT (08:18)
[2024-09-10 08:50] LABS: Troponin I < 0.012 ng/mL (0.01-0.034)
[2024-09-10 08:57] VITALS: BP 122/78; PULSE 71; RESP 16; TEMP 36.6; O2SAT 94
--- NOTE | 2024-09-10 12:34 | PM.DS.1 ---
History of Present Illness History of Present Illness Chief complaint: CHEST PAIN Narrative: Summary: The patient was a 69-year-old male with known history of CAD, and GERD. The patient presented with anterior chest discomfort with nausea. He denied dyspnea or diaphoresis. The pain did not radiate. He had taken a proton pump inhibitor in the past and had not been taking this on a regular basis. He tried 1 Prilosec last night without relief. ED course: ECG non-acute, troponin normal (x2). Subjective: His chest pain has resolved. He notes that the chest pain was severe last night and substernal. There was no radiation to neck or arm and no dyspnea or diaphoresis. He did describe some foaming in the back of his throat and does have history of reflux. He does note that he was fishing in the last several days and his diet was less than optimal. He was mostly concerned about his gallbladder. His symptoms have improved by about 95%. His cardiac studies have been unremarkable thus far. He denies a history of exertional chest pain. He does take Prilosec once a day chronically. He denies alcohol ingestion. Discharge Providers Provider Date of admission: 09/09/24 05:06 Discharge Date: 09/10/24 Primary care physician: Jackie Cartagena MD Discharge provider: Saji Lujan MD Summary Hospital Course Discharge Diagnosis: 1. Chest pain, atypical. Negative ECG and troponin x4. 2. History of GERD, stable. 3. Doubt pneumonia. No further antibiotics. Hospital Course: He was admitted with chest pain. He was initial concern was gallbladder. His pain was described as epigastric and chest with radiation both sides. He had no other typical symptoms and had a negative EKG and serial negative troponins. The patient was no cardiac history but did note a more chronic exertional chest pain and dyspnea pattern as well. He was have a family history of CAD and hyperlipidemia. A echo was obtained on September 10 which was unremarkable including normal wall motion. His symptoms did sound quite a bit like reflux esophagitis or spasm based on recent dietary indiscretions while on a fishing trip as well as symptoms worse at night and foaming in the back of his mouth. Ultimately, he was felt to be stable for discharge with close follow up with PCP and strong consideration of an outpatient exercise stress test given his more subacute history of exertional chest pressure. Status at Discharge Cognitive/behavioral status at discharge: at baseline, oriented Functional status at discharge: independent ambulation Overall status at discharge: patient is back to baseline Time Spent with Patient Time spent: Greater than 30 minutes Exam Vital Signs (past 8 hours): - 09/10/24 08:57 Temperature 97.8 F Pulse Rate 71 Respiratory Rate 16 Blood Pressure 122/78 Pulse Oximetry 94 Oxygen Flow Rate 0 Oxygen Delivery Method Room Air Oxygen Flow Rate 0 Narrative Exam Narrative: NAD, alert and oriented. Fluent speech. Lungs are clear, normal rate and effort. Heart is regular, no murmur gallop or rub. Abdomen is soft, non distended. Extremities are free of edema. Objective ECG Impression: Normal sinus rhythm Imaging Chest x-ray: Radiologist's impression: No acute process. Labs 09/09/24 08:05 09/09/24 08:05 Labs: Laboratory Results - last 24 hr 09/10/24 08:20 Troponin I < 0.012 PFSH Medical History History of chronic arthritis Surgical History S/P operative procedure on shoulder History of tonsillectomy History of appendectomy Family History Father Hypertension Heart disease Sister Cancer Social History marital status: household members: spouse and family occupational status: employed Smoking Status: Never smoker alcohol intake: current substance use type: does not use Discharge Assessment & Plan Assessment and Plan Assessment: 1. Chest pain, atypical. Negative ECG and troponin x4. 2. History of GERD, stable. 3. Doubt pneumonia. No further antibiotics. Plan of Treatment: Discharge home, we will have him take Prilosec twice a day until follow up with primary care. Would recommend an outpatient stress test as well. We will hold on further antibiotics at this point, and monitor his symptoms. Discharge Plan Discharge Plan Patient Disposition: Home Provider Discharge Comment: Stable for discharge with close PCP follow up and outpatient stress test. Discharge orders & Medications Prescriptions: Changed omeprazole 20 mg capsule,delayed release(DR/EC) 20 mg PO BID Qty: 60 0RF Discontinued ibuprofen 200 mg capsule 400 mg PO Q8H Medication counseling provided by Pharmacist: No Follow up/Referrals: Jackie Cartagena MD [Primary Care Provider, Family Practice] Discharge Health Status Multidrug resistant organism: No MDRO Diet/Activity/Treatments Diet: Diet as Tolerated Visit Report/Discharge Packet Instructions: DI for Chest Pain Stand Alone Forms: Patient Portal/API Discharge Data Primary Care Provider: Jackie Cartagena Attending Provider: Guillermo Quispe Admlizett Date/Time: 09/09/24 05:06
--- NOTE | 2024-09-10 13:35 | PC.NURSE ---
PIV removed, pt tolerated well. Tele removed, no medication in seismic observer. Provided pt education to pt and spouse on follow up and medications. Pt stated no further questions. All belongings with pt. Pt escorted out via WC with YAJAIRA Hurt.
== END 2024-09-10 13:37 | disposition home or self-care (01) ==
LOC: ED 09-09 01:24 → AC 09-09 05:06
PROVIDERS: Hospitalist; Admitting Provider Internal Medicine; Emergency Provider Emergency Medicine; PCP Family Medicine; Referring Provider Emergency Medicine; Visit Provider Internal Medicine
DX: R10.9 Unspecified abdominal pain (principal); R11.0 Nausea; R07.89 Other chest pain; I25.10 Atherosclerotic heart disease of native coronary artery without angina pectoris; K21.9 Gastro-esophageal reflux disease without esophagitis
CPT/HCPCS: 36415; 71045; 71275; 74177; 80048; 80053; 82550; 83605; 83690; 83735; 83880; 84484; 85014; 85018; 85025; 85610; 85730; 86850; 86900; 86901; 93005; 93306; 96361; 96365; 96372; 96375; 99284; 99291; G0378; J0696; J1171; J1650; J2405; J2470; Q9967

== ENCOUNTER → 2024-10-12 06:55 | Outpatient (CLI) | payer OTHER, MEDICARE, SELFPAY ==
[2024-09-09 06:22] VITALS: BMI 24.3
--- NOTE | 2024-10-12 06:56 | DI.US.S_ITS ---
PROCEDURE: US ABDOMEN LIMITED INDICATIONS: Right upper quadrant pain TECHNIQUE: Real-time scanning was performed of the abdominal and retroperitoneal organs, with image documentation. COMPARISON: [facility], CT, CT ABDOMEN PELVIS W CON, 09/09/2024, 3:13. [facility], US, US ABDOMEN COMPLETE, 11/02/2017, 10:07. FINDINGS: Liver: Poorly visualized. Previously described segment 6 lesion is not well demonstrated. Gallbladder: Gallbladder sludge. No wall thickening. No pericholecystic edema. Negative sonographic Luther's sign. Biliary ducts: No biliary dilation. Pancreas: Visualized portions of the pancreas are sonographically normal. Miscellaneous: No free abdominal fluid. IMPRESSION: Gallbladder sludge. No wall thickening or pericholecystic edema to suggest acute cholecystitis. Previously described exophytic lesion of the posterior segment 6 of the liver is not visualized on today's examination. Dictated by: Jordin Kaiser M.D. on 10/12/2024 at 10:19 Approved by: Jordin Kaiser M.D. on 10/12/2024 at 10:21
== END ==
PROVIDERS: PCP Family Medicine; Referring Provider Family Medicine; Visit Provider Family Medicine
DX: R10.11 Right upper quadrant pain (principal)
CPT/HCPCS: 76705

== ENCOUNTER → 2025-01-04 06:56 | Outpatient (CLI) | payer OTHER, MEDICARE, SELFPAY ==
[2024-09-09 06:22] VITALS: BMI 24.3
[2025-01-04 09:18] LABS: Vitamin D 25 Hydroxy (D3) 21.2 ng/mL (30.0-100.0)
== END ==
PROVIDERS: PCP Family Medicine; Referring Provider Family Medicine; Visit Provider Family Medicine
DX: D64.9 Anemia, unspecified (principal); R79.89 Other specified abnormal findings of blood chemistry
CPT/HCPCS: 36415; 82306

== ENCOUNTER → 2025-01-09 15:06 | Outpatient (CLI) | payer OTHER, MEDICARE, SELFPAY ==
[2024-09-09 06:22] VITALS: BMI 24.3
--- NOTE | 2025-01-09 15:07 | DI.NM.S_ITS ---
PROCEDURE: NM EXERCISE TREADMILL NON NUC COMPARISON: None. INDICATIONS: Chest pain. FINDINGS: Rest ECG sinus rhythm 90 bpm. Chuy protocol 6:00, maximum heart rate 155 bpm (101% peak predicted) peak blood pressure 152/94, 7.0 METS, KAILEE +76%. Exercise ECG sinus tachycardia, 1 to 1.[address] segment depressions leads II, V4-V6. The patient reported 4 out of 10 chest tightness with exercise and exhibited severe shortness of breath. SpO2 at peak exercise 96%. IMPRESSION: Abnormal study. The exercise ECG is consistent with inducible ischemia. Exercise-induced chest discomfort and severe shortness of breath also noted. Dictated by: Celsa Walters D.O. on 01/09/2025 at 16:39 Approved by: Celsa Walters D.O. on 01/09/2025 at 16:49
== END ==
LOC: NUCM 15:07
PROVIDERS: PCP Family Medicine; Referring Provider Family Medicine; Visit Provider Family Medicine
DX: R07.9 Chest pain, unspecified (principal); R94.39 Abnormal result of other cardiovascular function study
CPT/HCPCS: 93017

== ENCOUNTER → 2025-03-06 10:20 | Outpatient (CLI) | payer OTHER, MEDICARE, SELFPAY ==
[2024-09-09 06:22] VITALS: BMI 24.3
[2025-03-06 10:54] LABS: Add Manual Diff / Slide Review NO; Hematocrit 41.4 % (41-53); Hemoglobin 14.1 g/dL (13.5-17.5); Lymphocytes Absolute Auto 1800 /uL (1100-4500); Mean Corpuscular HGB Conc 34.1 % (30-36); Mean Corpuscular Hemoglobin 29.6 PG (26-34); Mean Corpuscular Volume 86.9 fL (80-100); Platelet Count 198 X10^3/uL (150-400)
[2025-03-06 11:06] LABS: Alanine Aminotransferase 26 IU/L (<50); Albumin 4.7 g/dL (3.5-5.0); Albumin Globulin Ratio 1.5 (1.0-2.8); Alkaline Phosphatase 86 U/L (38-126); Blood Urea Nitrogen 9 mg/dL (9-20); Calcium 9.3 mg/dL (8.4-10.2); Carbon Dioxide 24 mmol/L (22-32); Chloride 106 mmol/L (98-107); Cholesterol 124 mg/dL (140-199); Estimated Glomerular Filt Rate > 60 mL/min (>60); Globulin 3.1 g/dL (1.7-4.1); Glucose 92 mg/dL (70-99); HDL Cholesterol 35 mg/dL (40-60); HEMOLYSIS < 15 (0-50); Potassium 4.0 mmol/L (3.4-5.1); Sodium 140 mmol/L (137-145); Total Protein 7.8 g/dL (6.3-8.2); Triglycerides 171 mg/dL (35-150)
[2025-03-06 11:41] LABS: Ferritin 51 ng/mL (18-464)
[2025-03-06 11:49] LABS: Vitamin D 25 Hydroxy (D3) 26.8 ng/mL (30.0-100.0)
[2025-03-06 12:40] LABS: Folate 16.2 ng/mL (2.76-20.0); Vitamin B12 326 pg/mL (239-931)
== END ==
PROVIDERS: PCP Family Medicine; Referring Provider Family Medicine; Visit Provider Family Medicine
DX: E55.9 Vitamin D deficiency, unspecified (principal); D64.9 Anemia, unspecified; R07.9 Chest pain, unspecified; R91.8 Other nonspecific abnormal finding of lung field
CPT/HCPCS: 36415; 80053; 80061; 82306; 82607; 82728; 82746; 85025